=== PATIENT | female | born 1965 | race Hispanic/Latino ===

== ENCOUNTER 2019-03-13 18:21 | Inpatient (IN) | payer OTHER ==
[~2019-03-13] VITALS: Ht 165.1 cm; Wt 80.6 kg
[2019-03-13] MEDS ORDERED: SODIUM CHLORIDE 0.9% 1000ML 1,000 ML IV ONE ×3 (19:08→21:43)
[2019-03-13] MEDS ORDERED: ACETAMINOPHEN EXTRA STRENGTH 500 MG TABLET ONE (19:08)
[2019-03-13 19:13] LABS: BASOPHILS % (AUTO) 0.4 % (0.0-5.0); EOSINOPHILS % (AUTO) 0.8 % (0.0-8.0); HEMATOCRIT 37.3 % (36-48); LYMPHOCYTES % (AUTO) 14.5 % (21.0-51.0); MEAN CORPUSCULAR HEMOGLOBIN 29.8 pg (27.0-33.0); MEAN CORPUSCULAR HGB CONC 34.5 g/dL (32.0-36.0); MEAN CORPUSCULAR VOLUME 86.3 fL (79-99); MONOCYTES % (AUTO) 1.8 % (3.0-13.0); NEUTROPHILS % (AUTO) 82.5 % (40.0-77.0); PLATELET COUNT (AUTO) 133 K/uL (130-400); RED BLOOD CELL COUNT(AUTO) 4.32 MIL/uL (4.00-5.50); RED CELL DISTRIBUTION WIDTH 14.4 % (11.0-15.5); WHITE BLOOD COUNT (AUTO) 6.1 K/uL (4.8-10.8)
[2019-03-13 19:14] LABS: APPEARANCE,URINE Cloudy (CLEAR); BILIRUBIN,URINE Negative (NEGATIVE); COLOR,URINE Yellow (YELLOW); GLUCOSE, URINE (UA) >=1000 mg/dL (NEGATIVE); KETONES,URINE Negative (NEGATIVE); LEUKOCYTE ESTERASE ,URINE Moderate (NEGATIVE); NITRATE,URINE Negative (NEGATIVE); OCCULT BLOOD,URINE Small (NEGATIVE); PROTEIN,URINE POS 1+ mg/dL (NEGATIVE); UROBILINOGEN,URINE 0.2 mg/dL (0.2-1.0)
[2019-03-13] MEDS ORDERED: ZOSYN 3.375GM+NS 50ML 50 ML IV ONE (19:19)
[2019-03-13 19:27] LABS: CARBON DIOXIDE 23 mmol/L (21-32); CHLORIDE 95 mmol/L (101-111); CREATININE 0.9 mg/dL (0.5-1.5); GLOMERULAR FILTR. RATE CALC 70 mL/min (>60); GLUCOSE,RANDOM 383 mg/dL (70-105); POTASSIUM 4.4 mmol/L (3.5-5.1); SODIUM SERUM 136 mmol/L (136-145); UREA NITROGEN, BLOOD 11 mg/dL (7-18)
[2019-03-13 19:33] LABS: BACTERIA,URINE Few /HPF (None Seen); MUCUS,URINE Few LPF (None Seen); SQUAMOUS EPITHELIAL CELL,UR 0-2 /HPF (0-2)
[2019-03-13 19:38] LABS: ALANINE AMINOTRANSFERASE 30 U/L (12-78); ALBUMIN 3.8 g/dL (3.5-5.0); ASPARTATE AMINOTRANSFERASE 23 U/L (10-37); BILIRUBIN,TOTAL 0.7 mg/dL (0.2-1.0); CREATINE KINASE, TOTAL 125 U/L (21-232); INR 0.92 (0.85-1.15); MYOGLOBIN 46 ng/mL (10-92); PARTIAL THROMBOPLASTIN TIME 25.9 SEC (26.3-35.5); PROTHROMBIN TIME 9.7 SEC (9.6-11.6); TROPONIN I < 0.04 ng/mL (0.00-0.06)
[2019-03-13] MEDS ORDERED: CEFTRIAXONE SODIUM 1 GM IVP SCH (21:30)
[2019-03-13] MEDS ORDERED: ONDANSETRON HCL 4 MG/2 ML VIAL IV PRN (21:30)
[2019-03-13] MEDS ORDERED: ACETAMINOPHEN 325 MG TAB PO PRN (21:30)
[2019-03-13] MEDS: ZOSYN 3.375GM+NS 50ML 50 ML IV SCH (21:30)
[2019-03-13] MEDS: SODIUM CHLORIDE 0.9% 1000ML 1,000 ML IV SCH (21:30)
[2019-03-13] MEDS ORDERED: GUAIFENESIN-DM 200/20 MG 10 ML PO PRN (21:30)
[2019-03-13] MEDS ORDERED: CEFTRIAXONE SODIUM 1 GM ONE (21:41)
[2019-03-13 23:00] VITALS: BP 114/72
[2019-03-14] MEDS ORDERED: GLIP10TA3 PO (01:19)
[2019-03-14] MEDS ORDERED: LEVO50TA4 PO (01:19)
[2019-03-14] MEDS ORDERED: METF-444 PO (01:19)
[2019-03-14] MEDS ORDERED: CYCL5TAB PO (01:19)
[2019-03-14] MEDS ORDERED: FENO145T37 PO (01:19)
[2019-03-14] MEDS ORDERED: SIMV-46 PO (01:19)
[2019-03-14 03:31] VITALS: BP 124/75
[2019-03-14] MEDS: SODIUM CHLORIDE 0.9% 1000ML 1,000 ML IV SCH ×2 (05:30→10:25)
[2019-03-14] MEDS: ZOSYN 3.375GM+NS 50ML 50 ML IV SCH ×3 (05:50→20:30)
[2019-03-14 06:24] LABS: BASOPHILS % (AUTO) 0.3 % (0.0-5.0); EOSINOPHILS % (AUTO) 0.6 % (0.0-8.0); HEMATOCRIT 35.2 % (36-48); LYMPHOCYTES % (AUTO) 9.8 % (21.0-51.0); MEAN CORPUSCULAR HEMOGLOBIN 29.9 pg (27.0-33.0); MEAN CORPUSCULAR HGB CONC 34.2 g/dL (32.0-36.0); MEAN CORPUSCULAR VOLUME 87.3 fL (79-99); MONOCYTES % (AUTO) 13.1 % (3.0-13.0); NEUTROPHILS % (AUTO) 76.2 % (40.0-77.0); PLATELET COUNT (AUTO) 106 K/uL (130-400); RED BLOOD CELL COUNT(AUTO) 4.04 MIL/uL (4.00-5.50); RED CELL DISTRIBUTION WIDTH 14.1 % (11.0-15.5); WHITE BLOOD COUNT (AUTO) 8.2 K/uL (4.8-10.8)
[2019-03-14 06:49] LABS: ALBUMIN 3.1 g/dL (3.5-5.0); BILIRUBIN,TOTAL 0.6 mg/dL (0.2-1.0); CREATININE 0.6 mg/dL (0.5-1.5); POTASSIUM 3.8 mmol/L (3.5-5.1); TOTAL PROTEIN, SERUM 6.8 g/dL (6.0-8.3)
[2019-03-14 06:56] LABS: BAND NEUTROPHILS % (MANUAL) 20 % (0-2); BASOPHILS % (MANUAL) 1 % (0-2); LYMPHOCYTES % (MANUAL) 14 % (22-44); MAN.DIFF COMMENT-IMPRESSION MANUAL DIFFERENTIAL; MONOCYTES % (MANUAL) 5 % (2-9); PLATELET MORPHOLOGY COMMENT SLIGHTLY DECREASED; SEGMENTED NEUTROPHILS % 60 % (40-70)
[2019-03-14 07:00] VITALS: BP 118/71
[2019-03-14] MEDS ORDERED: DEXTROSE 50%-WATER 50 ML DISP.SYRIN IV PRN (08:00)
[2019-03-14] MEDS ORDERED: GLUCAGON 1MG KIT 1 MG ML IM PRN (08:00)
[2019-03-14 08:28] LABS: HEMOGLOBIN A1C 9.6 % (4.0-6.0)
[2019-03-14] MEDS: FAMOTIDINE 20MG TAB 20 MG TAB PO SCH ×2 (10:24→20:30)
[2019-03-14 11:00] VITALS: BP 131/77
[2019-03-14 16:00] VITALS: BP 134/78
[2019-03-14] MEDS: INSULIN LISPRO 100 UNIT/ML 3ML SQ SCH ×2 (16:09→18:00)
[2019-03-14] MEDS: DOXYCYCLINE HYCLATE 100 MG TABLET PO SCH (16:11)
[2019-03-14] MEDS: OSELTAMIVIR PHOSPHATE 75 MG CAP PO SCH (16:11)
--- NOTE | 2019-03-14 19:02 | NUR ---
michael note met with patient and resides at home with spouse independent with ambulation and adls. was visiting from [place], works door fitter. al plan is back home at al. Addendum: 03/14/19 at 1905 by DENNIS RUFFIN CM Amended: Links added.
[2019-03-14 20:00] VITALS: BP 138/77
--- NOTE | 2019-03-14 20:20 | NUR ---
Temp: 102.6 On-call hospitalist ( JIMMIE Burton) notified with an order to do blood culture.
[2019-03-14] MEDS: ACETAMINOPHEN 325 MG TAB PO PRN (20:30)
[2019-03-15] VITALS (7 sets, daily range): BP systolic 113–140; BP diastolic 56–85
[2019-03-15] MEDS: INSULIN LISPRO 100 UNIT/ML 3ML SQ SCH ×6 (00:50→22:02)
[2019-03-15] MEDS: SODIUM CHLORIDE 0.9% 1000ML 1,000 ML IV SCH (01:39)
[2019-03-15] MEDS: OSELTAMIVIR PHOSPHATE 75 MG CAP PO SCH ×2 (02:13→15:22)
[2019-03-15] MEDS: DOXYCYCLINE HYCLATE 100 MG TABLET PO SCH ×2 (02:13→15:22)
[2019-03-15] MEDS: ACETAMINOPHEN 325 MG TAB PO PRN ×2 (04:07→15:51)
[2019-03-15] MEDS: ZOSYN 3.375GM+NS 50ML 50 ML IV SCH ×3 (05:01→22:07)
[2019-03-15 05:11] LABS: BASOPHILS % (AUTO) 0.5 % (0.0-5.0); EOSINOPHILS % (AUTO) 0.4 % (0.0-8.0); HEMATOCRIT 33.8 % (36-48); LYMPHOCYTES % (AUTO) 9.8 % (21.0-51.0); MEAN CORPUSCULAR HGB CONC 34.9 g/dL (32.0-36.0); MEAN CORPUSCULAR VOLUME 85.9 fL (79-99); MONOCYTES % (AUTO) 10.6 % (3.0-13.0); NEUTROPHILS % (AUTO) 78.7 % (40.0-77.0); NUCLEATED RED BLOOD CELLS 0.1 % (0.0-0.19); PLATELET COUNT (AUTO) 112 K/uL (130-400); RED BLOOD CELL COUNT(AUTO) 3.94 MIL/uL (4.00-5.50); RED CELL DISTRIBUTION WIDTH 14.4 % (11.0-15.5); WHITE BLOOD COUNT (AUTO) 8.1 K/uL (4.8-10.8)
[2019-03-15 05:39] LABS: ALBUMIN 2.7 g/dL (3.5-5.0); BILIRUBIN,TOTAL 0.5 mg/dL (0.2-1.0); CREATININE 0.6 mg/dL (0.5-1.5); POTASSIUM 3.5 mmol/L (3.5-5.1); TOTAL PROTEIN, SERUM 6.6 g/dL (6.0-8.3)
[2019-03-15] MEDS: FAMOTIDINE 20MG TAB 20 MG TAB PO SCH ×2 (08:22→22:07)
[2019-03-15] MEDS ORDERED: INSULIN GLARGINE 100 UNITS/ML 10 ML VIAL SQ SCH (09:00)
[2019-03-16] MEDS: SODIUM CHLORIDE 0.9% 1000ML 1,000 ML IV SCH ×3 (02:05→20:37)
[2019-03-16] MEDS: DOXYCYCLINE HYCLATE 100 MG TABLET PO SCH ×2 (02:05→15:40)
[2019-03-16] MEDS: OSELTAMIVIR PHOSPHATE 75 MG CAP PO SCH ×2 (02:05→15:40)
[2019-03-16] MEDS: ACETAMINOPHEN 325 MG TAB PO PRN (02:06)
[2019-03-16 03:49] VITALS: BP 137/76
[2019-03-16] MEDS: ZOSYN 3.375GM+NS 50ML 50 ML IV SCH ×3 (05:10→20:35)
[2019-03-16] MEDS: INSULIN LISPRO 100 UNIT/ML 3ML SQ SCH ×4 (05:55→20:28)
[2019-03-16 07:57] VITALS: BP 120/82
[2019-03-16] MEDS: FAMOTIDINE 20MG TAB 20 MG TAB PO SCH ×2 (09:00→20:35)
[2019-03-16] MEDS: INSULIN GLARGINE 100 UNITS/ML 10 ML VIAL SQ SCH (09:06)
[2019-03-16] MEDS: ENOXAPARIN SODIUM 40 MG/0.4 ML SYRINGE SQ SCH (09:07)
[2019-03-16 11:21] VITALS: BP 136/80
[2019-03-16 16:00] VITALS: BP 140/79
[2019-03-16 19:00] VITALS: BP 121/77
[2019-03-16 23:00] VITALS: BP 137/92
[2019-03-17 03:00] VITALS: BP 137/79
[2019-03-17] MEDS: OSELTAMIVIR PHOSPHATE 75 MG CAP PO SCH ×2 (03:53→16:14)
[2019-03-17] MEDS: DOXYCYCLINE HYCLATE 100 MG TABLET PO SCH ×2 (03:53→16:14)
[2019-03-17] MEDS: ZOSYN 3.375GM+NS 50ML 50 ML IV SCH (05:25)
[2019-03-17] MEDS: INSULIN GLARGINE 100 UNITS/ML 10 ML VIAL SQ SCH (05:26)
[2019-03-17] MEDS: INSULIN LISPRO 100 UNIT/ML 3ML SQ SCH ×3 (05:27→16:24)
[2019-03-17 07:53] VITALS: BP 127/84
[2019-03-17] MEDS: FAMOTIDINE 20MG TAB 20 MG TAB PO SCH (08:49)
[2019-03-17] MEDS: ENOXAPARIN SODIUM 40 MG/0.4 ML SYRINGE SQ SCH (08:49)
[2019-03-17] MEDS ORDERED: LEVOFLOXACIN 500 MG TABLET PO SCH (09:00)
[2019-03-17 11:38] VITALS: BP 125/81
[2019-03-17] MEDS: SODIUM CHLORIDE 0.9% 1000ML 1,000 ML IV SCH (12:31)
[2019-03-17 16:00] VITALS: BP 151/84
== END 2019-03-17 18:51 | disposition home or self-care (01) | DRG 871 ==
LOC: EDH 18:21 → EDHIP 21:22 → 3CH 22:39
PROVIDERS: ADMIT Family Medicine; ATTEND Family Medicine
DX: A41.50 Gram-negative sepsis, unspecified (principal); J18.9 Pneumonia, unspecified organism; N39.0 Urinary tract infection, site not specified; E11.65 Type 2 diabetes mellitus with hyperglycemia; D69.6 Thrombocytopenia, unspecified; E78.5 Hyperlipidemia, unspecified; E78.00 Pure hypercholesterolemia, unspecified; E66.9 Obesity, unspecified; G47.33 Obstructive sleep apnea (adult) (pediatric); Z68.21 Body mass index [BMI] 21.0-21.9, adult; Z90.710 Acquired absence of both cervix and uterus; Z98.891 History of uterine scar from previous surgery; Z83.3 Family history of diabetes mellitus; Z79.899 Other long term (current) drug therapy
CPT/HCPCS: 36415; 71046; 71250; 76770; 80053; 81001; 82306; 82550; 82948; 83036; 83605; 83874; 83880; 84145; 84484; 85025; 85610; 85730; 87040; 87077; 87088; 87186; 87804; 87880; 93005; 93306; G0378; J0696; J1650; J2543; J7030